=== PATIENT | male | born 1980 | race Caucasian/White ===

== ENCOUNTER 2025-04-05 15:40 | Outpatient (CLI) | payer BC, SELFPAY | END 2025-04-05 15:41 | disposition home or self-care (01) | PROVIDERS: PCP Family Medicine; Visit Provider Family Medicine | DX: R53.83 Other fatigue (principal); J45.30 Mild persistent asthma, uncomplicated; Z13.6 Encounter for screening for cardiovascular disorders | CPT/HCPCS: 80048; 80061; 84403; 84443; 85025 ==